=== PATIENT | male | born 1940 | race African-American/Black ===

== ENCOUNTER 2018-07-19 16:45 | Inpatient (IN) | payer MEDICARE, OTHER ==
[~2018-07-19] VITALS: Ht 170.2 cm; Wt 111.3 kg
[~2018-07-19 16:45] MED LIST: ALDACTONE25 MG PO; BENAZEPRIL HCL10 MG PO; CLONIDINE HCL0.1 MG PO; COREG12.5 MG PO; GABAPENTIN100 MG PO; LASIX20 MG PO; LEVOCETIRI2.5 MG/5 M PO; LOVASTATIN40 MG PO; METOPROLOL TART50 MG PO; PANTOPRAZOLE SO40 MG PO; TERAZOSIN HCL1 MG PO
[2018-07-19] MEDS ORDERED: LOSARTAN POTASS25 MG PO (20:44)
--- NOTE | 2018-07-19 21:00 | Diagnostic Imaging Report ---
Exam: Left Knee Series. History: Left knee pain Comparison: None. Findings: 3 views of the left knee. There is decreased bone mineralization. Negative for acute, displaced fracture or dislocation. Tricompartmental degenerative joint disease, with joint space narrowing predominantly in the medial femorotibial compartment with mild subluxation. No aggressive lytic lesions. No abnormal soft tissue calcification or mass. Moderate suprapatellar effusion. Impression: 1. Generalized osteopenia limits evaluation of the bony structures. No acute, displaced fracture or dislocation. 2. Tricompartmental degenerative joint disease, worse in the medial femorotibial compartment, with mild subluxation. 3. Moderate suprapatellar effusion. Signed by: Dr. Spenser Dawson M.D. on 07/19/2018 8:56 PM
[2018-07-19] MEDS ORDERED: ZOLPIDEM TARTRATE 5 MG TAB PO PRN (21:15)
[2018-07-19] MEDS ORDERED: MORPHINE SULFATE 2 MG/ML SYR 1ML IV PRN (21:15)
[2018-07-19] MEDS ORDERED: SODIUM CHLORIDE FLUSH 10 ML SYR INJ PRN (21:15)
[2018-07-19] MEDS ORDERED: ONDANSETRON HCL INJ 2MG/ML 2ML 2 MG/ML VIAL IV PRN (21:15)
[2018-07-19] MEDS ORDERED: HYDRALAZINE HCL 20 MG/ML VIAL IV PRN (21:15)
[2018-07-19] MEDS ORDERED: HYDROCODONE/APAP 7.5MG-325MG 1 EA TAB PO PRN (21:15)
[2018-07-19] MEDS ORDERED: DIPHENHYDRAMINE HCL 25 MG CAP PO PRN (21:15)
--- OUTSIDE RECORDS SUMMARY | 2018-07-19 21:40 | XMS REPORT ---
Author Author [facility] Address Unknown Phone Unavailable Care Team Providers Care Hydramatic Mechanic Name Role Phone Linn MCDONALD Unavailable Unavailable Problems This patient has no known problems. Allergies, Adverse Reactions, Alerts This patient has no known allergies or adverse reactions. Medications This patient has no known medications. Results Test Description Test Time Test Comments Text Results Atomic Results Result Comments KNEE LEFT THREE VIEWS 2018-07-19 20:55:00 [facility] [address] [address] Patient Name: LILIAN APONTE MR #: [id number] : 1940 Age/Sex: 78/M Req #: [id number] Adm Physician: Ordered by: MINDA MCDONALD MD Report #: [id number] Location: ER Room/Bed: Procedure: [id number] DX/KNEE LEFT THREE VIEWS Exam Date: 07/19/18 Exam Time: 1939 REPORT STATUS: Signed Exam: Left Knee Series. History: Left knee pa in Comparison: None. Findings: 3 views of the left knee. There is decreased bone mineralization. Negative for acute, displaced fracture or dislocation. Tricompartmental degenerative joint disease, with joint space narrowing predominantly in the medial femorotibial compartment with mild subluxation. No aggressive lytic lesions. No abnormal soft tissue calcification or mass. Moderate suprapatellar effusion. Impression: 1. Generalized osteopenia limits evaluation of the bony structures. No acute, displaced fracture or dislocation. 2. Tricompartmental degenerative joint disease, worse in the medial femorotibial compartment, with mild subluxation. 3. Moderate suprapatellar effusion. Signed by: Dr. Loi Dawson M.D. on 07/19/2018 8:56 PM Dictated By: LOI DAWSON MD 53 Transcribed By: RANDOLPH on 07/19/182055 COPY TO: MINDA MCDONALD MD
[2018-07-19] MEDS ORDERED: ENOXAPARIN 30 MG/0.3 ML SYR SC ONE (21:45)
[2018-07-19] MEDS ORDERED: MORPHINE SULFATE INJ 4 MG/ML INJ 1ML IV PRN (21:45)
[2018-07-19 22:03] LABS: BASOPHILS % 0.5 % (0.0-1.0); EOSINOPHILS # (AUTO) 0.1 (0.0-0.4); HEMATOCRIT 44.6 % (38.2-49.6); HEMOGLOBIN 14.6 g/dL (14.0-18.0); LYMPHOCYTES # (AUTO) 0.7 (1.0-3.2); MEAN CORPUSCULAR HGB CONC 32.7 g/dL (31-35); MEAN CORPUSCULAR VOLUME 91.6 fL (81-99); MONOCYTES # (AUTO) 0.5 (0.2-0.8); MONOCYTES % 6.2 % (4.4-11.3); NEUTROPHILS % 82.2 % (38.7-80.0); PLATELET COUNT 257 x10e3/uL (140-360); RED BLOOD COUNT 4.87 x10e6/uL (4.3-5.7); RED CELL DISTRIBUTION WIDTH 14.6 % (11.7-14.4)
[2018-07-19 22:21] LABS: ALBUMIN 3.3 g/dL (3.5-5.0); ALBUMIN/GLOBULIN RATIO 0.8 (0.8-2.0); ANION GAP 15.1 mmol/L (8-16); CALCIUM 10.3 mg/dL (8.4-10.2); CREATININE, SERUM 1.73 mg/dL (0.72-1.25); POTASSIUM 4.1 mmol/L (3.5-5.1)
[2018-07-19 23:50] VITALS: BP 124/88
--- NOTE | 2018-07-19 23:50 | NUR ---
RECEIVED PT FROM ER VIA STRETCHER, IV INTACT TO LEFT AC, LEFT KNEE SWOLLEN AND PAINFUL TO TOUCH, EDEMA TO LOWER EXTREMITIES, ORIENTED TO ROOM, NO DISTRESS NOTED, CALL LIGHT IN REACH
[2018-07-19 23:55] VITALS: BP 124/88
[2018-07-20] VITALS (8 sets, daily range): BP systolic 135–162; BP diastolic 79–97
[2018-07-20] MEDS: ACETAMINOPHEN 325 MG TAB PO PRN (01:57)
--- NOTE | 2018-07-20 05:38 | NUR ---
PT IN BED, NO DISTRESS NOTED, CALL LIGHT IN REACH, VS STABLE
--- NOTE | 2018-07-20 07:31 | NUR ---
pt resting in bed, no c/o pain or s/s distress. will continue to monitor.
[2018-07-20] MEDS: FAMOTIDINE 20 MG TAB PO SCH ×2 (09:01→17:54)
--- NOTE | 2018-07-20 09:27 | History and Physical ---
CHIEF COMPLAINT: Left knee swelling and pain. HISTORY: [id number] male approximately 2 weeks ago unsure how patient developed left knee swelling and started having problem with walking. The patient is brought in by family. He is unable to walk. He had difficulty moving that left knee. Patient is otherwise stable. Pending for seen by orthopedic. PAST MEDICAL HISTORY: Hypertension, osteoarthritis, obesity. PAST SURGICAL HISTORY: Appendectomy many years ago. SOCIAL HISTORY: Patient does not smoke. Occasional social drinker. Patient lives at home with his family. ALLERGIES: NO KNOWN ALLERGIES. HOME MEDICATIONS: Lasix, gabapentin, Zyrtec, losartan, lovastatin, metoprolol, Protonix, and terazosin. PHYSICAL EXAMINATION: VITAL SIGNS: Temperature is 98, blood pressure 161/97, pulse rate is 86, respirations 18. GENERAL: The patient is not in acute distress. He is awake. HEENT: Normocephalic, atraumatic. Sclerae anicteric. NECK: Supple grossly. PULMONARY: Clear. CARDIOVASCULAR: Regular rate and rhythm. ABDOMEN: Obese. EXTREMITIES: Left knee swelling, no redness. Difficulty with range of motion. NEUROLOGIC: No focal deficit. LABORATORY: Sodium is 140, potassium 4.1, chloride 104, bicarb 25, BUN 17, creatinine 1.7, glucose 148. WBC 7.3, hemoglobin 14.6, hematocrit 44.6, platelets 257,000. IMPRESSION: 1. Left knee swelling and pain. 2. Ambulatory dysfunction due to left knee pain. The x-ray showed degenerative joint disease with swelling and joint effusion. PLAN: Continue with pain control. Venous Doppler of the left lower extremity to rule out for any DVT. DVT prophylaxis. Consultation with Dr. Richy Sheriff, which has already been done. Pain control. Job#: [id number]
[2018-07-20] MEDS: TERAZOSIN HCL 1 MG CAP PO SCH (09:30)
[2018-07-20] MEDS: CELECOXIB 100 MG CAP PO SCH ×2 (09:30→17:54)
[2018-07-20] MEDS: METOPROLOL TARTRATE 50 MG TAB PO SCH ×2 (09:30→17:54)
[2018-07-20] MEDS: SENNA-S TABLET PO SCH ×2 (09:31→17:54)
[2018-07-20] MEDS: PANTOPRAZOLE SOD 40 MG TABEC PO SCH (09:31)
[2018-07-20] MEDS: LIDOCAINE 5% PATCH TP SCH (09:31)
--- NOTE | 2018-07-20 14:40 | NUR ---
Visit made by the Spiritual Care Department Pastoral Visitor, Deidra Torres. Pt sleeping soundly and no family present. Pastoral Visitor left a card describing availability of over short and damage clerk and instructions on how to contact a over short and damage clerk. NELDA MENDOZA [employer] Spiritual Care Department O: [phone] Pager: [phone] ([phone] number calling from)
--- NOTE | 2018-07-20 14:40 | NUR ---
CASE MANAGEMENT INITIAL ASSESSMENT Human Resources Office Manager to bedside to discuss plan of care with patient/family. CM/SW role and care transitions discussed. Anticipated discharge plan discussed along with duration of care. CM discussed patients right to make decisions in care. CM/SW work hours given. Patient lives: PATIENT LIVES HOME ALONE IN [address] HOME WITH DAUGHTER [place] ([id number]) Admit/Transfer: ED POA/Emergency contact: DAUGHTER- ABAD CARVAJAL: [phone] Current/Previous Home Health: NONE PCP/Follow-up Care: DR. VICTOR MANUEL SQUIRES Current/Previous DME: SHANNEN Other Services: NONE Employment Status: RETIRED Areas of Concerns: MOBILITY Referral Needs: ALF PLACEMENT Education Needs: NONE IMM/HORAN given and signed (if applicable): HORAN GIVEN WITH EXPLANATION. ORIGINAL SIGNED COPY IN CHART. COPY OF SIGNED DOCUMENT GIVEN TO PATIENT AND PLACED IN CARE TRANSITION FOLDER Goal for discharge: PATIENT AND PATIENT DAUGHTER WOULD LIKE TO GO TO ALF FACILITY FOR PHYSICAL THERAPY SERVICES. PATIENT WITH DECLINE IN MOBILITY. CM left business card at the bedside with contact information. Name and number was also written on the patients whiteboard. Patient verbalized understanding of discussion. CM will follow-up with ongoing discharge and transition of care needs
--- NOTE | 2018-07-20 16:04 | NUR ---
Nutrition Screen Note RD Recommendation for Physician: -Continue cardiac diet as ordered Plan of Care: RD following, monitoring for tolerance and adequacy Nutrition reason for involvement: Nutrition Risk Trigger MST Primary Diagnose(s): 1. Left knee swelling and pain. 2. Ambulatory dysfunction due to left knee pain. The x-ray showed degenerative joint disease with swelling and joint effusion. PMH: Hypertension, osteoarthritis, obesity. Ht: 67in Wt: 236lb BMI: 37kg/m2 IBW: 148lb RD Assessment: (07/20) Chart reviewed. Labs and meds reviewed. 78yo M, who is admitted for L knee swelling and pain. Visited pt in the room. Pt report fair appetite with 75% observed lunch intake. No GI complains noted. 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 No recent weight loss reported. No chewing or swallowing difficulty noted. Will continue to monitor and follow. Current Diet: Cardiac diet Malnutrition Evaluation (07/20/2018) The patient does not meet criteria for a specified degree of malnutrition at this time. Will re-evaluate at follow-up as appropriate. Diet Education Needs Assessment: Diet education not indicated. Nutrition Care Level: low Signed: Natalie Rodriguez, MS, RD, LD
[2018-07-20] MEDS: ENOXAPARIN SOD INJ 40 MG/0.4 ML SYR SC SCH (17:54)
--- NOTE | 2018-07-20 19:05 | NUR ---
Received patient awake on bed, no complaints of pain at this time, not in distress. Call light within easy reach, advised to call for assistance when needed. Bed in low position and locked, bed alarm on. Will continue to monitor.
[2018-07-21] VITALS (8 sets, daily range): BP systolic 116–157; BP diastolic 80–97
[2018-07-21] MEDS: ACETAMINOPHEN 325 MG TAB PO PRN (05:40)
[2018-07-21] MEDS ORDERED: NIFEDIPINE CR 30 MG TAB PO NR (09:30)
--- NOTE | 2018-07-21 09:30 | NUR ---
Spoke with Dr. Sheriff regarding consult for the patient. informed he was not aware and would be by later
[2018-07-21] MEDS: SENNA-S TABLET PO SCH ×2 (09:35→16:13)
[2018-07-21] MEDS: LIDOCAINE 5% PATCH TP SCH (09:35)
[2018-07-21] MEDS: CELECOXIB 100 MG CAP PO SCH ×2 (09:35→16:13)
[2018-07-21] MEDS: PANTOPRAZOLE SOD 40 MG TABEC PO SCH (09:35)
[2018-07-21] MEDS: FAMOTIDINE 20 MG TAB PO SCH ×2 (09:35→16:13)
[2018-07-21] MEDS: METOPROLOL TARTRATE 50 MG TAB PO SCH ×2 (09:35→16:13)
[2018-07-21] MEDS: TERAZOSIN HCL 1 MG CAP PO SCH (09:36)
--- NOTE | 2018-07-21 10:04 | NUR ---
spoke with md calabrese regarding pt unrelieved pain with pain med on chart. pt states at home he takes tylenol #8. orders for tylenol #3 given at this time
[2018-07-21] MEDS: ACETAMINOPHEN/CODEINE 300MG - 30MG TAB PO PRN ×2 (10:53→19:22)
[2018-07-21] MEDS: ENOXAPARIN SOD INJ 40 MG/0.4 ML SYR SC SCH (16:13)
--- NOTE | 2018-07-21 19:15 | NUR ---
REPORT TAKEN FROM MORNING JORGE IN THE BED. PAIN [email or web address].MEDICATED WITH TYLENOL#3.STABLE CONDITION.
--- NOTE | 2018-07-21 21:00 | NUR ---
ASSESSMENT DONE.NO RESP.DISTRESS.VOIDED.ASSISTED TO USE BED VALLE.BUT NO BM.BED LOCKED AND IN LOWEST POSITION.BED ALARM ON.PHONE AND CALL LIGHT WITHIN REACH.INSTRUCTED TO CALL FOR ASSISTANCE NEEDED.
[2018-07-22] VITALS (7 sets, daily range): BP systolic 129–165; BP diastolic 80–101
--- NOTE | 2018-07-22 00:10 | NUR ---
PROVIDED SNACKS .WATCHING TV.
--- NOTE | 2018-07-22 02:00 | NUR ---
ASSISTED REPOSITION.PAIN MEDICINE GIVEN.BED ALARM ON.
[2018-07-22] MEDS: ACETAMINOPHEN/CODEINE 300MG - 30MG TAB PO PRN ×2 (02:17→09:26)
--- NOTE | 2018-07-22 04:00 | NUR ---
SLEEPING IN THE BED.STABLE CONDITION.
[2018-07-22] MEDS: NIFEDIPINE CR 30 MG TAB PO SCH ×3 (05:37→09:00)
--- NOTE | 2018-07-22 06:50 | NUR ---
REPORT GIVEN TO THE ONCOMING RN.WALKING ROUNDS DONE.STABLE CONDITION.
[2018-07-22] MEDS: TERAZOSIN HCL 1 MG CAP PO SCH (08:13)
[2018-07-22] MEDS: FAMOTIDINE 20 MG TAB PO SCH ×2 (08:13→16:38)
[2018-07-22] MEDS: CELECOXIB 100 MG CAP PO SCH ×2 (08:13→16:38)
[2018-07-22] MEDS: METOPROLOL TARTRATE 50 MG TAB PO SCH ×2 (08:14→16:39)
[2018-07-22] MEDS: SENNA-S TABLET PO SCH ×2 (08:14→16:38)
[2018-07-22] MEDS: PANTOPRAZOLE SOD 40 MG TABEC PO SCH (08:14)
[2018-07-22] MEDS: LIDOCAINE 5% PATCH TP SCH (08:14)
--- NOTE | 2018-07-22 10:18 | NUR ---
WENT AND SPOKE WITH PATIENT WHOM CALLED DAUGHTER RADHA CARVAJAL WHILE IN ROOM, ADVISED DOCTOR IS RECOMMENDING SNF GAVE AVAILABLE IN NETWORK. THEY CHOOSE [facility] WILL FAX CLINICALS TO [phone]. SIGNED CHOICE AND FILED IN CHART
[2018-07-22] MEDS: PREDNISONE 20 MG TAB PO SCH (12:18)
--- NOTE | 2018-07-22 13:06 | NUR ---
spoke with lab regarding md molina orders to have gram stain , cell count, arobic, anarobic, afb, fungus cult, and crystal analysis with fluid aspirated from left knee lab states to place fluid into sterile container . AFB order will be put in by lab due to inability to due in on this end
--- NOTE | 2018-07-22 13:06 | NUR ---
spoke with arabella in lab
[2018-07-22 15:55] LABS: BODY FLUID APPEARANCE CLOUDY; BODY FLUID COLOR RED; BODY FLUID TYPE SYNOVIAL
[2018-07-22 15:56] LABS: RBC,BODY FLUID 20295 cells/uL; WBC,BODY FLUID 495 cells/uL
[2018-07-22] MEDS: ENOXAPARIN SOD INJ 40 MG/0.4 ML SYR SC SCH (16:38)
[2018-07-22 17:17] LABS: LYMPHOCYTES,BODY FLUID 8 %; MONO/MACROPHG,BODY FLUID 9 %; NEUTROPHILS,BODY FLUID 82 %
[2018-07-22 17:18] LABS: OTHER CELLS,BODY FLUID 1 %
--- NOTE | 2018-07-22 21:00 | NUR ---
NO PAIN VOICED.NO RESP.DISTRESS.RESTING IN THE BED.BED LOCKED AND IN LOWEST POSITION.PHONE AND CALL LIGHT WITHIN REACH.INSTRUCTED TO CALL FOR ASSISTANCE NEEDED.FREQUENT ROUNDING.
[2018-07-23] VITALS (8 sets, daily range): BP systolic 127–147; BP diastolic 80–93
--- NOTE | 2018-07-23 04:00 | NUR ---
RESTING IN THE BED.NO PAIN VOICED.
--- NOTE | 2018-07-23 07:00 | NUR ---
REPORT GIVEN TO THE ONCOMING RN.WALKING ROUNDS DONE.STABLE CONDITION.
[2018-07-23] MEDS: FAMOTIDINE 20 MG TAB PO SCH ×2 (08:30→17:30)
[2018-07-23] MEDS: LIDOCAINE 5% PATCH TP SCH (08:50)
[2018-07-23] MEDS: PANTOPRAZOLE SOD 40 MG TABEC PO SCH (08:52)
[2018-07-23] MEDS: NIFEDIPINE CR 30 MG TAB PO SCH (08:52)
[2018-07-23] MEDS: CELECOXIB 100 MG CAP PO SCH ×2 (08:52→17:30)
[2018-07-23] MEDS: SENNA-S TABLET PO SCH ×2 (08:52→17:30)
[2018-07-23] MEDS: METOPROLOL TARTRATE 50 MG TAB PO SCH ×2 (08:52→17:30)
[2018-07-23] MEDS: TERAZOSIN HCL 1 MG CAP PO SCH (08:52)
[2018-07-23] MEDS: PREDNISONE 20 MG TAB PO SCH (08:52)
[2018-07-23 09:02] LABS: BASOPHILS % 0.4 % (0.0-1.0); EOSINOPHILS # (AUTO) 0.2 (0.0-0.4); EOSINOPHILS % 3.2 % (0.0-6.0); HEMATOCRIT 38.2 % (38.2-49.6); HEMOGLOBIN 12.4 g/dL (14.0-18.0); LYMPHOCYTES # (AUTO) 1.3 (1.0-3.2); LYMPHOCYTES % 26.5 % (18.0-39.1); MEAN CORPUSCULAR HEMOGLOBIN 29.6 pg (28-32); MEAN CORPUSCULAR HGB CONC 32.5 g/dL (31-35); MEAN CORPUSCULAR VOLUME 91.2 fL (81-99); MONOCYTES # (AUTO) 0.4 (0.2-0.8); MONOCYTES % 7.5 % (4.4-11.3); NEUTROPHILS # (AUTO) 3.1 (2.1-6.9); PLATELET COUNT 262 x10e3/uL (140-360); RED BLOOD COUNT 4.19 x10e6/uL (4.3-5.7); RED CELL DISTRIBUTION WIDTH 14.6 % (11.7-14.4)
[2018-07-23 09:21] LABS: ANION GAP 12.9 mmol/L (8-16); BLOOD UREA NITROGEN 25 mg/dL (7-26); BUN/CREATININE RATIO 19 (6-25); CALCIUM 9.7 mg/dL (8.4-10.2); CARBON DIOXIDE 24 mmol/L (22-29); CHLORIDE 105 mmol/L (98-107); CREATININE, SERUM 1.31 mg/dL (0.72-1.25); EST GLOMERULAR FILTRATION RATE > 60 ML/MIN (60-); GLUCOSE 96 mg/dL (74-118); POTASSIUM 3.9 mmol/L (3.5-5.1); SODIUM 138 mmol/L (136-145)
--- NOTE | 2018-07-23 11:45 | NUR ---
PHYSICAL THERAPY IN ROOM WITH PT
--- NOTE | 2018-07-23 13:00 | NUR ---
REPOSITIONED, CALL LIGHT WITHIN REACH
[2018-07-23] MEDS: ENOXAPARIN SOD INJ 40 MG/0.4 ML SYR SC SCH (17:30)
--- NOTE | 2018-07-23 17:44 | NUR ---
PT VOICES NO NEEDS AT THIS TIME, CALL LIGHT WITHIN REACH
--- NOTE | 2018-07-23 19:13 | NUR ---
WALKING ROUNDS PERFORMED, RECEIVED PT LAYING SEMI FOWLERS IN BED, AAOX3, RR EVEN AND NON-LABORED, ON RA. NO S/SX OF DISTRESS NOTED. DRESSING TO (L) KNEE CDI. LEFT PT LAYING SEMI FOWLERS IN BED, BED IN LOW LOCKED POSITION, SIDE RAILS UPX2, CALL LIGHT AND PHONE WITHIN REACH.
--- NOTE | 2018-07-23 21:29 | NUR ---
LIDOCAINE PATCH REMOVED FROM (L) KNEE.
[2018-07-24] VITALS (8 sets, daily range): BP systolic 136–175; BP diastolic 81–108
[2018-07-24] MEDS: CLONIDINE HCL 0.2 MG TAB PO PRN (06:53)
--- NOTE | 2018-07-24 08:27 | NUR ---
MD CARTER INTO SEE PT, DISCUSSED POC
[2018-07-24] MEDS: FAMOTIDINE 20 MG TAB PO SCH ×2 (08:30→17:30)
[2018-07-24] MEDS: CELECOXIB 100 MG CAP PO SCH ×2 (09:00→17:30)
[2018-07-24] MEDS: SENNA-S TABLET PO SCH ×2 (09:00→17:00)
[2018-07-24] MEDS: NIFEDIPINE CR 30 MG TAB PO SCH (10:00)
[2018-07-24] MEDS: PREDNISONE 20 MG TAB PO SCH (10:00)
[2018-07-24] MEDS: METOPROLOL TARTRATE 50 MG TAB PO SCH ×2 (10:00→17:00)
[2018-07-24] MEDS: TERAZOSIN HCL 1 MG CAP PO SCH (10:00)
[2018-07-24] MEDS: LIDOCAINE 5% PATCH TP SCH (10:00)
[2018-07-24] MEDS: PANTOPRAZOLE SOD 40 MG TABEC PO SCH (10:00)
--- NOTE | 2018-07-24 10:50 | NUR ---
WITH ASSIST OF PHYSICAL THERAPIST, PT OOB TO BS CHAIR, PCT CHANGED LINENS, PT REFUSING BATH AT THIS TIME, CALL LIGHT WITHIN REACH
[2018-07-24] MEDS: ENOXAPARIN SOD INJ 40 MG/0.4 ML SYR SC SCH (17:30)
--- NOTE | 2018-07-24 19:05 | NUR ---
WALKING ROUNDS PERFORMED, RECEIVED PT SITTING IN CHAIR. PT IS AAOX3, RR EVEN AND NON-LABORED, ON RA. NO S/SX OF DISTRESS NOTED. LEFT PT SITTING IN CHAIR, CALL LIGHT AND PHONE WITHIN REACH.
--- NOTE | 2018-07-24 22:10 | NUR ---
DRESSING TO (L) LATERAL KNEE REMOVED AT THIS TIME, SKIN CDI. CLEANSED AREA WITH NS, LEFT OPEN TO AIR LIDOCAINE PATCH REMOVED FROM (L) KNEE.
[2018-07-25] VITALS (8 sets, daily range): BP systolic 136–165; BP diastolic 86–107
[2018-07-25] MEDS: CLONIDINE HCL 0.2 MG TAB PO PRN (00:49)
[2018-07-25] MEDS: FAMOTIDINE 20 MG TAB PO SCH ×2 (08:30→17:30)
--- NOTE | 2018-07-25 08:30 | NUR ---
MD CARTER INTO SEE PT, DISCUSSED POC
[2018-07-25] MEDS: CELECOXIB 100 MG CAP PO SCH ×2 (09:00→17:30)
[2018-07-25] MEDS: SENNA-S TABLET PO SCH ×2 (09:00→17:00)
[2018-07-25] MEDS: PANTOPRAZOLE SOD 40 MG TABEC PO SCH (10:00)
[2018-07-25] MEDS: LIDOCAINE 5% PATCH TP SCH (10:00)
[2018-07-25] MEDS: TERAZOSIN HCL 1 MG CAP PO SCH (10:00)
[2018-07-25] MEDS: PREDNISONE 20 MG TAB PO SCH (10:00)
[2018-07-25] MEDS: METOPROLOL TARTRATE 50 MG TAB PO SCH ×3 (10:00→20:32)
[2018-07-25] MEDS: NIFEDIPINE CR 30 MG TAB PO SCH (10:00)
[2018-07-25] MEDS: ENOXAPARIN SOD INJ 40 MG/0.4 ML SYR SC SCH (17:30)
--- NOTE | 2018-07-25 19:08 | NUR ---
WALKING ROUNDS PERFORMED, RECEIVED PT SITTING ON SIDE OF BED, AAOX3, RR EVEN AND NON-LABORED, ON RA. NO S/SX OF DISTRESS NOTED. LEFT PT SITTING ON SIDE OF BED. BED IN LOW LOCKED POSITION, SIDE RAILS UPX2, CALL LIGHT AND PHONE WITHIN REACH.
--- NOTE | 2018-07-25 20:32 | NUR ---
LIDOCAINE PATCH REMOVED FROM (L) KNEE.
[2018-07-26] VITALS: BP 154/102
[2018-07-26 04:00] VITALS: BP 183/97
[2018-07-26] MEDS: CLONIDINE HCL 0.2 MG TAB PO PRN (04:25)
--- NOTE | 2018-07-26 07:12 | NUR ---
Received patient and walking rounds complete. Patient asleep in bed at this time, no signs of distress noted. Bed in lowest position, wheels locked, side rails up x2, call light in reach. Will continue to monitor.
[2018-07-26 07:50] VITALS: BP 148/92
[2018-07-26] MEDS ORDERED: HYDROCODONE/APAP 7.5MG-325MG 1 EA TAB PO PRN (08:00)
[2018-07-26] MEDS: FAMOTIDINE 20 MG TAB PO SCH ×2 (09:00→17:23)
[2018-07-26] MEDS: SENNA-S TABLET PO SCH ×2 (09:00→17:23)
[2018-07-26] MEDS: TERAZOSIN HCL 1 MG CAP PO SCH (09:00)
[2018-07-26] MEDS: CELECOXIB 100 MG CAP PO SCH ×2 (09:00→17:23)
[2018-07-26] MEDS ORDERED: PREDNISONE 10 MG TAB PO SCH (09:00)
[2018-07-26] MEDS: PANTOPRAZOLE SOD 40 MG TABEC PO SCH (09:00)
[2018-07-26] MEDS: NIFEDIPINE CR 30 MG TAB PO SCH (09:00)
[2018-07-26] MEDS: METOPROLOL TARTRATE 50 MG TAB PO SCH (09:00)
[2018-07-26] MEDS: LIDOCAINE 5% PATCH TP SCH (09:01)
[2018-07-26 09:37] VITALS: BP 148/92
--- NOTE | 2018-07-26 11:00 | NUR ---
Patient A/O x3, even respirations unlabored on room air. No complaint of pain or discomfort at this time. R FA IV saline locked. Lidocaine patch on left knee. Last bowel movement 07/22/18, bowel sounds present. Will continue to monitor
[2018-07-26 12:00] VITALS: BP 144/99
--- NOTE | 2018-07-26 15:14 | NUR ---
Nutrition Screen Note RD Recommendation for Physician: - Continue cardiac diet as ordered Plan of Care: RD following, monitoring for tolerance and adequacy Nutrition reason for involvement: Follow up Primary Diagnose(s): 1. Left knee swelling and pain. 2. Ambulatory dysfunction due to left knee pain. The x-ray showed degenerative joint disease with swelling and joint effusion. PMH: Hypertension, osteoarthritis, obesity. Ht: 67in Wt: 236lb BMI: 37kg/m2 IBW: 148lb RD Assessment: (07/26) Chart reviewed. No labs since 07/23. Currently on PO Prednisone, Protonix and Pepcid. Visited pt in the room. Unable to obtain hx as pt was sleeping. PCT reports pt eating good w/o any GI complains. PCT recorded 50-100% meal intake in the last couple days. LBM 07/23. Will continue to monitor and follow. (07/20) Chart reviewed. Labs and meds reviewed. 78yo M, who is admitted for L knee swelling and pain. Visited pt in the room. Pt report fair appetite with 75% observed lunch intake. No GI complains noted. 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 No recent weight loss reported. No chewing or swallowing difficulty noted. Will continue to monitor and follow. Current Diet: Cardiac diet Malnutrition Evaluation (07/20/2018) The patient does not meet criteria for a specified degree of malnutrition at this time. Will re-evaluate at follow-up as appropriate. Diet Education Needs Assessment: Diet education not indicated. Nutrition Care Level: low Signed: Natalie Rodriguez, MS, RD, LD
[2018-07-26 15:48] VITALS: BP 150/96
--- NOTE | 2018-07-26 15:51 | NUR ---
Report called and given to nurse Montaño at [facility].
--- NOTE | 2018-07-26 16:13 | NUR ---
Removed patients IV. Catheter tip intact and pressure dressing applied.
[2018-07-26] MEDS ORDERED: ENOXAPARIN SOD INJ 40 MG/0.4 ML SYR SC SCH (17:00)
--- NOTE | 2018-07-26 17:54 | NUR ---
Patient discharged from facility to [facility]. Left via ambulance in stretcher. No signs of distress at discharge. Patient gathered all personal belongings.
== END 2018-07-26 18:01 | DRG 554 ==
LOC: ER 16:45 → ERHOLD 21:37 → MED/SURG 23:54 → OBSVTOIN 07-22 08:49
PROVIDERS: ADMIT Internal Medicine; ATTEND Internal Medicine
PROC: 0S9D3ZX Drainage of Left Knee Joint, Percutaneous Approach, Diagnostic (ICD-10-PCS; principal; 2018-07-22)
DX: M10.9 Gout, unspecified (principal); M25.572 Pain in left ankle and joints of left foot; I10 Essential (primary) hypertension; E66.9 Obesity, unspecified; M17.12 Unilateral primary osteoarthritis, left knee; Z68.38 Body mass index [BMI] 38.0-38.9, adult
CPT/HCPCS: 36415; 80048; 80053; 85025; 87071; 87075; 87102; 87116; 87205; 87206; 89051; 89060; 93971; 97139; 99284; G0378; J1650; J2270; J7512